=== PATIENT | female | born 1945 | race Two or more races ===

== ENCOUNTER 2017-05-16 14:57 | Outpatient (CLI) | payer OTHER | END 2017-05-16 15:00 | disposition home or self-care (01) | LOC: MAMO-SONO 14:57 | DX: Z12.31 Encounter for screening mammogram for malignant neoplasm of breast (principal); Z87.898 Personal history of other specified conditions; N62 Hypertrophy of breast ==

== ENCOUNTER 2017-05-30 10:25 | Outpatient (CLI) | payer OTHER | END 2017-05-30 10:30 | disposition home or self-care (01) | LOC: NUCLEAR 10:25 | DX: M81.0 Age-related osteoporosis without current pathological fracture (principal) ==

== ENCOUNTER 2017-06-29 13:37 | Outpatient (CLI) | payer OTHER | END 2017-06-29 13:48 | disposition home or self-care (01) | LOC: SONOGRAMA 13:37 | DX: N60.11 Diffuse cystic mastopathy of right breast (principal); N60.12 Diffuse cystic mastopathy of left breast; N63.12 Unspecified lump in the right breast, upper inner quadrant ==

== ENCOUNTER 2018-12-04 08:12 | Outpatient (CLI) | payer OTHER | END 2018-12-04 08:18 | disposition home or self-care (01) | LOC: MAMO-SONO 08:12 | DX: N60.11 Diffuse cystic mastopathy of right breast (principal); N60.12 Diffuse cystic mastopathy of left breast ==

== ENCOUNTER 2019-01-10 10:03 | Outpatient (CLI) | payer OTHER | END 2019-01-10 10:15 | disposition home or self-care (01) | LOC: SONOGRAMA 10:03 | DX: N60.11 Diffuse cystic mastopathy of right breast (principal); N60.12 Diffuse cystic mastopathy of left breast; N63.21 Unspecified lump in the left breast, upper outer quadrant ==

== ENCOUNTER 2019-12-08 10:29 | Outpatient (CLI) | payer OTHER | END 2019-12-08 11:04 | disposition home or self-care (01) | LOC: MAMO-SONO 10:29 | PROVIDERS: ATTEND Internal Medicine Cardiovascular Disease | DX: Z12.31 Encounter for screening mammogram for malignant neoplasm of breast (principal); N64.59 Other signs and symptoms in breast ==

== ENCOUNTER → 2020-12-08 | Outpatient (CLI) | payer OTHER | END | disposition home or self-care (01) | LOC: MAMO-SONO 08:45 | PROVIDERS: ATTEND Internal Medicine Cardiovascular Disease | DX: R92.1 Mammographic calcification found on diagnostic imaging of breast (principal); D24.1 Benign neoplasm of right breast; Z12.31 Encounter for screening mammogram for malignant neoplasm of breast ==

== ENCOUNTER → 2020-12-22 | Outpatient (CLI) | payer OTHER | END | disposition home or self-care (01) | LOC: SONOGRAMA 11:45 → MAMO-SONO 12:15 | PROVIDERS: ATTEND Internal Medicine Cardiovascular Disease | DX: M25.512 Pain in left shoulder (principal) ==

== ENCOUNTER 2022-08-03 10:35 | Outpatient (CLI) | payer OTHER | END 2022-08-03 12:18 | disposition home or self-care (01) | LOC: MAMO-SONO 10:35 | PROVIDERS: ATTEND Internal Medicine Cardiovascular Disease | DX: N63.12 Unspecified lump in the right breast, upper inner quadrant (principal); Z12.31 Encounter for screening mammogram for malignant neoplasm of breast ==

== ENCOUNTER 2023-12-04 14:33 | Emergency (ER) | payer OTHER ==
[~2023-12-04] VITALS: Ht 152.4 cm; Wt 49.9 kg
[2023-12-04] MEDS ORDERED: ZESTRIL20 MG (15:34)
[2023-12-04] MEDS ORDERED: LEVALBUTEROL HCL 1.25 MG/3 ML SOLUTION IH STA (16:13)
[2023-12-04] MEDS ORDERED: BUDESONIDE 0.5 MG/2 ML AMPUL.NEB IH STA (16:13)
[2023-12-04] MEDS ORDERED: HYDROCODONE/CHLORPHEN P-STIREX 5 ML ML PO STA (16:15)
[2023-12-04] MEDS ORDERED: METHYLPREDNISOLONE SOD SUCC 1,000 MG VIAL IV SCH (16:15)
[2023-12-04] MEDS ORDERED: METHYLPREDNISOLONE SOD SUCC 125 MG VIAL IV STA (16:19)
[2023-12-04] MEDS ORDERED: METHYLPREDNISOLONE SOD SUCC 40 MG VIAL ONE (16:42)
[2023-12-04 16:43] LABS: HEMOGLOBIN 12.8 g/dL (12.0-15.00); MEAN CELL VOLUME 92.2 fL (80.00-100.00); MEAN CORPUSCULAR HEMOGLOBIN 30.3 pg (27.00-32.0); MEAN CORPUSCULAR HGB CONC 32.9 g/dl (32.0-36.0); PLATELET COUNT 227 K/uL (150-450); RED BLOOD COUNT 4.23 M/uL (4.00-6.00); RED CELL DISTRIBUTION WIDTH 13.7 % (11.5-14.5)
[2023-12-04 17:07] LABS: CALCIUM 9.2 mg/dL (8.5-10.1); CREATININE SERUM 0.83 mg/dL (0.55-1.02); GFR 66.84; POTASSIUM 3.76 mEq/L (3.5-5.1)
[2023-12-04] MEDS ORDERED: LEVALBUTEROL HCL 0.63 MG/3 ML SOLUTION IH ONE (18:18)
[2023-12-04] MEDS ORDERED: BUDESONIDE 0.25 MG/2 ML AMPUL.NEB IH ONE (18:18)
== END 2023-12-04 19:53 | disposition home or self-care (01) ==
LOC: ER 14:33
PROVIDERS: General Practice
DX: R05.8 Other specified cough (principal); Z88.6 Allergy status to analgesic agent; Z20.822 Contact with and (suspected) exposure to COVID-19
CPT/HCPCS: 36415; 71046; 94640; 96365; 99284; J3490